=== PATIENT | female | born 1980 | race Caucasian/White ===

== ENCOUNTER → 2018-11-03 10:51 | Outpatient (CLI) | payer OTHER, SELFPAY ==
[2018-11-03 12:01] LABS: Add Manual Diff / Slide Review NO; Basophils Percent Auto 0.4 % (0-2); Eosinophils Percent Auto 0.6 % (2-4); Hematocrit 42.3 % (36-46); Hemoglobin 14.3 g/dL (12.0-16.0); Lymphocytes Percent Auto 28.4 % (25-40); Mean Corpuscular HGB Conc 33.8 % (30-36); Mean Corpuscular Hemoglobin 29.6 PG (26-34); Mean Corpuscular Volume 87.5 fL (80-100); Monocytes Percent Auto 8.5 % (3-14); Neutrophils Absolute Auto 4100 /uL (3000-5900); Neutrophils Percent Auto 62.1 % (50-75); Platelet Count 539 X10^3/uL (150-400); Red Blood Cell Count 4.84 X10^6/uL (4.0-5.2); Red Cell Distribution Width 13.6 % (11.6-14.8); White Blood Cell Count 6.6 X10^3/uL (4.5-11.0)
[2018-11-03 12:16] LABS: Alanine Aminotransferase 25 IU/L (9-52); Albumin 4.9 g/dL (3.5-5.0); Albumin Globulin Ratio 1.6 (1.0-2.8); Alkaline Phosphatase 40 U/L (38-126); Aspartate Aminotransferase 21 IU/L (14-36); Bilirubin Total 1.1 mg/dL (0.2-1.3); Blood Urea Nitrogen 15 mg/dL (7-17); Calcium 9.6 mg/dL (8.4-10.2); Carbon Dioxide 28 mmol/L (22-32); Chloride 103 mmol/L (98-107); Estimated Glomerular Filt Rate > 60.0 mL/min (>60); Globulin 3.1 g/dL (1.7-4.1); Glucose 92 mg/dL (70-100); HEMOLYSIS < 15 (0-50); Potassium 3.9 mmol/L (3.4-5.1); Sodium 145 mmol/L (137-145)
[2018-11-03 12:45] LABS: TSH w/ Reflex to FT4 1.11 uIU/mL (0.47-4.68)
== END ==
PROVIDERS: PCP Internal Medicine; Visit Provider Internal Medicine
DX: F33.1 Major depressive disorder, recurrent, moderate (principal); G80.9 Cerebral palsy, unspecified; R03.0 Elevated blood-pressure reading, without diagnosis of hypertension
CPT/HCPCS: 36415; 80053; 84443; 85025

== ENCOUNTER → 2019-06-08 09:07 | Outpatient (CLI) | payer OTHER, SELFPAY ==
[2019-06-08 10:48] LABS: BUN Creatinine Ratio 26.7 (6-22); Blood Urea Nitrogen 16 mg/dL (7-17); Calcium 9.5 mg/dL (8.4-10.2); Carbon Dioxide 27 mmol/L (22-32); Chloride 105 mmol/L (98-107); Estimated Glomerular Filt Rate > 60.0 mL/min (>60); Glucose 78 mg/dL (70-100); HEMOLYSIS < 15 (0-50); Potassium 4.4 mmol/L (3.4-5.1); Sodium 141 mmol/L (137-145)
== END ==
PROVIDERS: PCP Internal Medicine; Visit Provider Internal Medicine
DX: I10 Essential (primary) hypertension (principal)
CPT/HCPCS: 36415; 80048

== ENCOUNTER → 2019-12-11 17:21 | Outpatient (CLI) | payer OTHER, SELFPAY | PROVIDERS: PCP Internal Medicine; Visit Provider Physician Assistant | DX: N30.00 Acute cystitis without hematuria (principal) | CPT/HCPCS: 87077; 87086; 87186 ==

== ENCOUNTER 2021-02-08 11:18 | Emergency (ER) | payer OTHER, SELFPAY ==
[2021-02-08 11:25] VITALS: BP 156/88; PULSE 123; RESP 20; TEMP 36.8; O2SAT 100; BMI 20.7
[2021-02-08 11:28] VITALS: PULSE 112; RESP 19; O2SAT 100
[2021-02-08 11:30] VITALS: BP 148/84; PULSE 101; RESP 11; O2SAT 100
[2021-02-08 11:38] LABS: Add Manual Diff / Slide Review NO; Basophils Absolute Auto 0 /uL (0-100); Basophils Percent Auto 0.5 % (0-2); Eosinophils Absolute Auto 100 /uL (0-450); Hematocrit 41.5 % (36-46); Lymphocytes Absolute Auto 2200 /uL (1100-4500); Lymphocytes Percent Auto 36.9 % (25-40); Mean Corpuscular HGB Conc 33.7 % (30-36); Mean Corpuscular Hemoglobin 29.6 PG (26-34); Mean Corpuscular Volume 87.8 fL (80-100); Monocytes Absolute Auto 700 /uL (0-900); Monocytes Percent Auto 11.5 % (3-14); Neutrophils Absolute Auto 2900 /uL (1500-7000); Neutrophils Percent Auto 50.1 % (50-75); Platelet Count 530 X10^3/uL (150-400); Red Blood Cell Count 4.73 X10^6/uL (4.0-5.2); Red Cell Distribution Width 13.8 % (11.6-14.8); White Blood Cell Count 5.9 X10^3/uL (4.5-11.0)
[2021-02-08 11:50] LABS: Blood Urea Nitrogen 16 mg/dL (7-17); Calcium 9.7 mg/dL (8.4-10.2); Carbon Dioxide 25 mmol/L (22-32); Chloride 106 mmol/L (98-107); Estimated Glomerular Filt Rate > 60.0 mL/min (>60); Glucose 92 mg/dL (70-100); HEMOLYSIS < 15 (0-50); Potassium 3.6 mmol/L (3.4-5.1); Sodium 139 mmol/L (137-145)
[2021-02-08 11:51] LABS: Magnesium 1.9 mg/dL (1.6-2.3)
--- NOTE | 2021-02-08 11:56 | ED_ITS ---
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 She states that she currently feels very woozy. She was seen by her primary doctor's office approximately 2 weeks ago for palpitations. She was diagnosed with premature atrial contractions. She is scheduled for a echocardiogram at the beginning of next month. There was some discussion about putting her on a beta-jabari but the decision was made to wait until after the echocardiogram. She states that today she felt like her heart was beating fast. She took her blood pressure today and she states that the systolic blood pressure ranged anywhere from the 120s to 150s. She contacted her primary doctor's office nurse who told her to come to the emergency department for evaluation. Related Data Previous Rx's Medication Instructions Recorded blood pressure monitor #1 each 04/13/19 bupropion HCl 150 mg tablet,12 hr 150 mg PO BID #120 tab 09/21/20 sustained-release lisinopril 5 mg tablet 5 mg PO DAILY #90 tab 09/21/20 propranolol 10 mg PO DAILY PRN #14 tab 02/08/21 Allergies Allergy/AdvReac Type Severity Reaction Status Date / Time No Known Drug Allergies Allergy Verified 01/23/21 15:43 Review of Systems Constitutional Constitutional: Denies fever(s) and Denies headache(s) ENT Ears, Nose, Mouth, and Throat: Denies headache(s) Cardiovascular Cardiovascular: Reports chest pain, Reports rapid heart rate, Reports irregular heart rhythm, Reports lightheadedness and Denies dyspnea Respiratory Respiratory: Denies cough and Denies dyspnea Gastrointestinal Gastrointestinal: Denies abdominal pain, Denies nausea and Denies vomiting Genitourinary Genitourinary: Denies dysuria Genitourinary: Denies dysuria Musculoskeletal Musculoskeletal: Denies arthralgias and Denies myalgias Integumentary/Breasts Skin/Breast: Reports rash Neurologic Neurologic: Denies headache(s) Hematologic/Lymphatic On Anticoagulants: No Allergic/Immunologic Allergic/Immunologic: Denies urticaria Patient History Medical History (Updated 02/08/21 @ 12:45 by Heber Tafoya DO) Cerebral palsy (10/05/12) Cerebral palsy H/O migraine Moderate episode of recurrent major depressive disorder Seasonal affective disorder (12/22/17) Social History Smoking Status: Never smoker Smoking Status: Never smoker Exam Initial Vital Signs Initial Vital Signs: Vital Signs Temperature 98.3 F 02/08/21 11:25 Pulse Rate 123 H 02/08/21 11:25 Respiratory Rate 20 02/08/21 11:25 Blood Pressure 156/88 H 02/08/21 11:25 Pulse Oximetry 100 02/08/21 11:25 Const General: cooperative, comfortable and well developed Limitations: mental status not altered HENMT Head: normal to inspection and normocephalic Resp Effort & Inspection: normal respiratory effort Auscultation: clear to auscultation bilaterally Cardio Rate: regular rate Rhythm: regular rhythm GI Palpation: soft Skin Lesions: no lesions Rashes: no rashes Neuro General: patient alert, patient awake and patient oriented x3 Cognition: normal cognition Speech: speech normal Extrem General: capillary refill normal and No edema Psych Appearance: grossly normal and well kempt Course Orders Ordered: ED Orders 02/08/21 11:23 EKG-12 Lead Stat 02/08/21 11:29 Basic Metabolic Panel Stat Complete Blood Count AUTO DIFF Stat Magnesium Stat Test Serum,Qual Stat Thyroid Stimulating Hormone Stat Vital Signs Vital signs: Vital Signs - 8 hr 02/08/21 11:25 02/08/21 11:28 02/08/21 11:30 Temperature 98.3 F Pulse Rate 123 H 112 H 101 H Respiratory Rate 20 19 11 L Blood Pressure 156/88 H 148/84 H Pulse Oximetry 100 100 100 02/08/21 12:00 02/08/21 12:30 Temperature Pulse Rate 90 83 Respiratory Rate 24 19 Blood Pressure 138/80 128/69 Pulse Oximetry 98 98 Medical Decision Making Lab Data Lab results reviewed: Yes I reviewed the patient's lab results. Result diagrams: 02/08/21 11:29 02/08/21 11:29 Labs: Lab Results 02/08/21 02/08/21 02/08/21 Range/Units 11:29 11:29 11:29 WBC 5.9 (4.5-11.0) X10^3/uL RBC 4.73 (4.0-5.2) X10^6/uL Hgb 14.0 (12.0-16.0) g/dL Hct 41.5 (36-46) % MCV 87.8 (80-100) fL MCH 29.6 (26-34) PG MCHC 33.7 (30-36) % RDW 13.8 (11.6-14.8) % Plt Count 530 H (150-400) X10^3/uL Neut % (Auto) 50.1 (50-75) % Lymph % (Auto) 36.9 (25-40) % [place] % (Auto) 11.5 (3-14) % Eos % (Auto) 1.0 L (2-4) % Baso % (Auto) 0.5 (0-2) % Neut # (Auto) 2900 (2557-2558) /uL Lymph # (Auto) 2200 (8227-2400) /uL [place] # (Auto) 700 (0-900) /uL Eos # (Auto) 100 (0-450) /uL Baso # (Auto) 0 (0-100) /uL Sodium 139 (137-145) mmol/L Potassium 3.6 (3.4-5.1) mmol/L Chloride 106 (98-107) mmol/L Carbon Dioxide 25 (22-32) mmol/L BUN 16 (7-17) mg/dL Creatinine 0.64 (0.52-1.04) mg/dL Estimated GFR > 60.0 (>60) mL/min BUN/Creatinine Ratio 25.0 H (6-22) Glucose 92 (70-100) mg/dL Calcium 9.7 (8.4-10.2) mg/dL Magnesium (1.6-2.3) mg/dL TSH 1.50 (0.47-4.68) uIU/mL Serum , Qual (Negative) 02/08/21 02/08/21 Range/Units 11:29 11:29 WBC (4.5-11.0) X10^3/uL RBC (4.0-5.2) X10^6/uL Hgb (12.0-16.0) g/dL Hct (36-46) % MCV (80-100) fL MCH (26-34) PG MCHC (30-36) % RDW (11.6-14.8) % Plt Count (150-400) X10^3/uL Neut % (Auto) (50-75) % Lymph % (Auto) (25-40) % [place] % (Auto) (3-14) % Eos % (Auto) (2-4) % Baso % (Auto) (0-2) % Neut # (Auto) (2788-6491) /uL Lymph # (Auto) (5392-4329) /uL [place] # (Auto) (0-900) /uL Eos # (Auto) (0-450) /uL Baso # (Auto) (0-100) /uL Sodium (137-145) mmol/L Potassium (3.4-5.1) mmol/L Chloride (98-107) mmol/L Carbon Dioxide (22-32) mmol/L BUN (7-17) mg/dL Creatinine (0.52-1.04) mg/dL Estimated GFR (>60) mL/min BUN/Creatinine Ratio (6-22) Glucose (70-100) mg/dL Calcium (8.4-10.2) mg/dL Magnesium 1.9 (1.6-2.3) mg/dL TSH (0.47-4.68) uIU/mL Serum , Qual Negative (Negative) ECG Data Attestation: I personally reviewed and interpreted this ECG as follows: Prior ECG tracings: not available for review Interpretation: Sinus tachycardia Ventricular rate of 107 Normal axis Normal QRS Normal QTC No ST T wave changes MDM Narrative Medical decision making narrative: Patient is not toxic. Her labs are unremarkable. She was sinus tachycardic on her EKG and this did improve without intervention. Her blood pressure was unremarkable. She already has an appointment scheduled for an echocardiogram in the near future. She also is having quite a bit of anxiety around the symptoms. Will start her on propanolol as needed to help with the palpitations and also potentially can help with the anxiety. We did discuss this could potentially cause her blood pressure to decrease and to watch for signs regarding this. She was given return precautions and follow-up instructions. She expressed understanding and agreement Discharge Plan Departure Patient Disposition: Home Clinical Impression: Sinus tachycardia Instructions: Arrhythmias Activity Restrictions/Additional Instructions: Your labs today are unremarkable. Recommend that you keep your scheduled appoi ntment for the echocardiogram at the beginning of next month. Return to the emergency department for the symptoms that we discussed. Prescriptions: New propranolol 10 mg tablet 10 mg PO DAILY PRN (Reason: Palpitations) Qty: 14 RF: 0 No Action (DME) blood pressure monitor kit See Dose Instructions .ROUTE .MEDSUPPLY Qty: 1 RF: 0 lisinopril 5 mg tablet 5 mg PO DAILY Qty: 90 RF: 3 bupropion HCl [Wellbutrin SR] 150 mg tablet sustained-release 12 hr 150 mg PO BID Qty: 120 RF: 3 Referrals: Gibson Hatfield MD [Primary Care Provider] -
[2021-02-08 11:58] LABS: Pregnancy Test Serum,Qual Negative (Negative)
[2021-02-08 12:00] VITALS: BP 138/80; PULSE 90; RESP 24; O2SAT 98
[2021-02-08 12:30] VITALS: BP 128/69; PULSE 83; RESP 19; O2SAT 98
== END 2021-02-08 12:55 | disposition home or self-care (01) ==
PROVIDERS: Emergency Provider Emergency Medicine; PCP Internal Medicine
DX: R00.0 Tachycardia, unspecified (principal); R07.9 Chest pain, unspecified; R21 Rash and other nonspecific skin eruption
CPT/HCPCS: 36415; 80048; 83735; 84443; 84703; 85025; 93005; 93010; 99283; 99284

== ENCOUNTER → 2021-02-22 08:10 | Outpatient (CLI) | payer OTHER, SELFPAY ==
--- NOTE | 2021-02-22 08:12 | DI.ECHO.S_ITS ---
[facility] +---------+ [facility] +---------+ : : [address] : : : : [id number] : : : : Phone: [phone]---------+ Echocardiogram Report + + :Name: ROSALBA WHEELER Study Date: 02/22/2021 Height: 60 in : :[facility] ReadingLocation: Weight: 112 lb : : Gender: Female BSA: 1.5 m2 : :: 1980 Age: 40 yrs BP: 118/74 mmHg: :Reason For Study: NEW DX OF FREQUENT PACS : :Ordering Physician: JOHNNIE, : :ALEK Performed By: Nena Shepherd : :Referring: ALEK BLAIR : + + Interpretation Summary The left ventricle is normal in size and wall thickness. The ejection fraction is estimated to be 60-65%. The right ventricle is normal in size and function. No significant valvular pathology seen. The IVC is of normal diameter and collapses greater than 50% with a sniff. This suggests a low right atrial pressure of 3 mm Hg. Procedure: A two-dimensional transthoracic echocardiogram with color flow and Doppler was performed. The study quality was technically adequate. There is no prior echocardiogram noted for this patient. The patient was in sinus rhythm with heart rates between 77-99 bpm during the exam. Left Ventricle: The left ventricle is normal in size and wall thickness. There is no thrombus. A false chord is noted (normal variant). The ejection fraction is estimated to be 60-65%. There are no focal wall motion abnormalities. Diastolic parameters suggest probable normal left ventricular diastolic function and normal filling pressures. Right Ventricle: The right ventricle is normal in size and function. Atria: The left atrial size is normal. Right atrial size is normal. There is no Doppler evidence for an interatrial shunt. Mitral Valve: The mitral valve is normal in structure and function. There is mild mitral regurgitation. Aortic Valve: The aortic valve is trileaflet. The aortic valve opens well. There is no aortic valve stenosis. There is trace aortic regurgitation. Tricuspid Valve: The tricuspid valve is normal in structure and function. There is trace tricuspid regurgitation. Pulmonary artery pressures cannot be estimated because of the lack of a measurable TR jet velocity but the IVC suggests a CVP of around 3 mmHg. Pulmonic Valve: The pulmonic valve leaflets are thin and pliable; valve motion is normal. There is no pulmonic valvular regurgitation. Great Vessels: The aortic root is normal size. The dimensions of the ascending aorta are normal. The IVC is of normal diameter and collapses greater than 50% with a sniff. This suggests a low right atrial pressure of 3 mm Hg. Pericardium/ Pleura There is no pericardial effusion. There is no pleural effusion. MMode/2D Measurements & Calculations LVIDd: 4.1 cm LVOT diam: 2.0 cm LVIDs: 2.7 cm Ao root diam: 2.8 cm FS: 35.1 % asc Aorta Diam: 2.4 cm EPSS: 0.38 cm Ao Arch Diam (Prox Trans): 2.3 cm IVSd: 0.81 cm LVPWd: 0.63 cm LV lezama. diameter/BSA (cm/m^2): 2.8 LV sys. diameter/BSA (cm/m^2): 1.8 LA A2 area: 16.3 cm2 RA long axis: 4.0 cm LA A4 area: 15.0 cm2 RA area: 10.3 cm2 LA length (vol): 4.4 cm RA vol: 22.6 ml LA vol: 47.0 ml RA : 15.5 ml/m2 LA vol index: 32.2 ml/m2 IVC diam: 1.5 cm RVD1 (basal): 2.6 cm TAPSE: 2.1 cm Doppler Measurements & Calculations Ao V2 max: 160.3 cm/sec LVOT Max Chet: 97.1 cm/sec Ao V2 mean: 111.5 cm/sec LV V1 max P.8 mmHg Ao max P.3 mmHg LV V1 VTI: 20.5 cm Ao mean P.7 mmHg JESSICA(I,D): 2.1 cm2 Ao V2 VTI: 29.6 cm JESSICA(V,D): 1.9 cm2 sev ratio: 0.69 JESSICA indexed to BSA (cm^2/m^2): 1.5 MV E max chet: 108.4 cm/sec PA V2 max: 129.5 cm/sec MV A max chet: 84.7 cm/sec PA V2 mean: 90.8 cm/sec MV E/A: 1.3 PA mean P.8 mmHg Med Peak E' Chet: 10.6 cm/sec PA pr(Accel): 24.2 mmHg E/E' med: 10.2 Lat Peak E' Chet: 18.0 cm/sec E/E' lat: 6.0 E/e' average: 8.1 MV dec time: 0.17 sec SVLVOT): 63.1 ml Reading Physician:04:30 PM
== END ==
PROVIDERS: PCP Internal Medicine; Referring Provider Student in an Organized Health Care Education/Training Program; Visit Provider Student in an Organized Health Care Education/Training Program
DX: I49.1 Atrial premature depolarization (principal)
CPT/HCPCS: 93306

== ENCOUNTER → 2021-03-09 16:30 | Outpatient (CLI) | payer OTHER, SELFPAY ==
[2021-03-09] MEDS: COVID-19 VACC #1, MRNA(MOD) 100 MCG/0.5 ML VIAL IM (16:38)
== END ==
PROVIDERS: PCP Internal Medicine; Visit Provider Internal Medicine
DX: Z23 Encounter for immunization (principal)
CPT/HCPCS: 0011A; 91301

== ENCOUNTER → 2021-04-05 08:15 | Outpatient (CLI) | payer OTHER, SELFPAY ==
[2021-04-05 09:50] LABS: Alanine Aminotransferase 30 IU/L (<35); Albumin 4.1 g/dL (3.5-5.0); Albumin Globulin Ratio 1.5 (1.0-2.8); Alkaline Phosphatase 38 U/L (38-126); Aspartate Aminotransferase 33 IU/L (14-36); BUN Creatinine Ratio 14.9 (6-22); Bilirubin Total 1.3 mg/dL (0.2-1.3); Blood Urea Nitrogen 10 mg/dL (7-17); Carbon Dioxide 29 mmol/L (22-32); Chloride 103 mmol/L (98-107); Cholesterol 226 mg/dL (140-199); Estimated Glomerular Filt Rate > 60.0 mL/min (>60); Globulin 2.8 g/dL (1.7-4.1); Glucose 77 mg/dL (70-100); HDL Cholesterol 62 mg/dL (40-60); HEMOLYSIS < 15 (0-50); LDL Cholesterol Calculated 154 mg/dL (<100); Potassium 4.3 mmol/L (3.4-5.1); Sodium 139 mmol/L (137-145); Total Protein 6.9 g/dL (6.3-8.2); Triglycerides 50 mg/dL (35-150)
== END ==
PROVIDERS: PCP Internal Medicine; Referring Provider Internal Medicine; Visit Provider Internal Medicine
DX: F33.1 Major depressive disorder, recurrent, moderate (principal); F33.9 Major depressive disorder, recurrent, unspecified; I10 Essential (primary) hypertension
CPT/HCPCS: 36415; 80053; 80061

== ENCOUNTER → 2021-04-05 09:26 | Outpatient (CLI) | payer OTHER, SELFPAY ==
[2021-04-05] MEDS: COVID-19 VACC #2, MRNA(MOD) 100 MCG/0.5 ML VIAL IM (09:31)
== END ==
PROVIDERS: PCP Internal Medicine; Visit Provider Internal Medicine
DX: Z23 Encounter for immunization (principal)
CPT/HCPCS: 0012A; 91301

== ENCOUNTER → 2022-10-20 16:40 | Outpatient (CLI) | payer OTHER, SELFPAY ==
[2022-10-21 13:01] LABS: COVID-19 CEPHEID 4-PLEX PCR Negative (Negative); Influenza A - CEPHEID Flu A POSITIVE (NEGATIVE); Influenza B - CEPHEID Flu B NEGATIVE (NEGATIVE); Respiratory Syncytial Virus Negative (Negative)
== END ==
PROVIDERS: PCP Internal Medicine; Visit Provider Physician Assistant
DX: R05.9 Cough, unspecified (principal)
CPT/HCPCS: 0241U

== ENCOUNTER → 2023-01-07 07:09 | Outpatient (CLI) | payer OTHER, SELFPAY ==
[2023-01-07 09:23] LABS: BUN Creatinine Ratio 18.5 (6-22); Blood Urea Nitrogen 12 mg/dL (7-17); Calcium 8.9 mg/dL (8.4-10.2); Carbon Dioxide 30 mmol/L (22-32); Chloride 100 mmol/L (98-107); Estimated Glomerular Filt Rate > 60 mL/min (>60); Glucose 83 mg/dL (70-100); HEMOLYSIS < 15 (0-50); Potassium 3.9 mmol/L (3.4-5.1); Sodium 138 mmol/L (137-145)
== END ==
PROVIDERS: PCP Internal Medicine; Referring Provider Internal Medicine; Visit Provider Internal Medicine
DX: I10 Essential (primary) hypertension (principal)
CPT/HCPCS: 36415; 80048

== ENCOUNTER → 2023-01-22 12:31 | Outpatient (CLI) | payer OTHER, SELFPAY ==
--- NOTE | 2023-01-22 12:33 | DI.MG.S_ITS ---
BILATERAL DIGITAL SCREENING MAMMOGRAM 3D/2D WITH CAD: 01/22/2023 CLINICAL: Baseline exam. Routine screening. No prior exams were available for comparison. Both breasts are heterogeneously dense, which may obscure small masses (category c / 51-75% glandular tissue). Current study was also evaluated with a Computer Aided Detection (CAD) system. There is a 1.4 cm oval mass with a circumscribed margin in the right breast at 12 o'clock in the retroareolar region. No other significant masses, calcifications, or other findings are seen in either breast. IMPRESSION: INCOMPLETE: NEEDS ADDITIONAL IMAGING EVALUATION The 1.4 cm oval mass in the right breast resembles a fibroadenoma and is indeterminate. Additional views with possible ultrasound are recommended. Based on Tyrer-Cuzick model (a risk assessment model), the patient's lifetime risk is 30.1% and her 10 year risk is 6.8%. If a patient has an elevated risk, a more comprehensive evaluation should be considered and/or a referral to a genetic counselor. The [place] [employer], [employer], and NCCN Guidelines advise the consideration of Breast MRI as an adjunct to screening mammography in patients whose Lifetime risk to develop breast cancer is 20% or higher. This exam was interpreted at Station ID: [id number]. NOTE: For mammograms, a report in lay terms will be sent to the patient. Approximately 15% of breast malignancies will not be visualized mammographically. In the management of a palpable breast mass, a negative mammogram must not discourage biopsy of a clinically suspicious lesion. Electronically Signed By: Cristian Joe M.D. [facility] [place]/:01/22/2023 14:27:49 letter sent: Additional Imaging Needed ACR BI-RADS Category 0: Incomplete [id number]
== END ==
PROVIDERS: PCP Internal Medicine; Referring Provider Internal Medicine; Visit Provider Internal Medicine
DX: Z12.31 Encounter for screening mammogram for malignant neoplasm of breast (principal)
CPT/HCPCS: 77063; 77067

== ENCOUNTER → 2023-02-05 12:58 | Outpatient (CLI) | payer OTHER, SELFPAY ==
--- NOTE | 2023-02-05 | DI.MG.S_ITS ---
UNILATERAL RIGHT DIGITAL DIAGNOSTIC MAMMOGRAM 3D/2D WITH ADDITIONAL VIEWS: 02/05/2023 CLINICAL: Additional evaluation requested from prior study. Comparison is made to exam dated: 01/22/2023 mammogram - [facility]. The right breast is heterogeneously dense, which may obscure small masses (category c / 51-75% glandular tissue). There is a mass in the right breast seen on the craniocaudal view only. There also is a 1.9 cm irregular mass with a circumscribed margin in the right breast at 12 o'clock in the retroareolar region 1.5 cm from the nipple. No other significant masses or calcifications are seen in the breast. IMPRESSION: INCOMPLETE: NEEDS ADDITIONAL IMAGING EVALUATION The mass in the right breast seen on the craniocaudal view only needs additional evaluation. The 1.9 cm irregular mass in the right breast at 12 o'clock in the retroareolar region resembles a fibroadenoma or cyst and is indeterminate. An ultrasound is recommended. Based on Tyrer-Cuzick model (a risk assessment model), the patient's lifetime risk is 31.5% and her 10 year risk is 7.1%. If a patient has an elevated risk, a more comprehensive evaluation should be considered and/or a referral to a genetic counselor. The [place] [employer], [employer], and NCCN Guidelines advise the consideration of Breast MRI as an adjunct to screening mammography in patients whose Lifetime risk to develop breast cancer is 20% or higher. This exam was interpreted at Station ID: [id number]. NOTE: For mammograms, a report in lay terms will be sent to the patient. Approximately 15% of breast malignancies will not be visualized mammographically. In the management of a palpable breast mass, a negative mammogram must not discourage biopsy of a clinically suspicious lesion. Electronically Signed By: Cali Rosenberg M.D. acr/:02/05/2023 14:33:16 ACR BI-RADS Category 0: Incomplete [id number]
--- NOTE | 2023-02-05 12:59 | DI.US.S_ITS ---
PROCEDURE: US BREAST RT LIMITED COMPARISON: None. INDICATIONS: screen FINDINGS: IMPRESSION: Dictated by: Cali Rosenberg M.D. on 02/05/2023 at 14:45 Approved by: Cali Rosenberg M.D. on 02/05/2023 at 14:56
--- NOTE | 2023-02-05 13:43 | DI.US.S_ITS ---
At the request of: ROBERTH ROGERS Procedure: US breast RT limited ULTRASOUND OF RIGHT BREAST: 02/05/2023 CLINICAL: Patient returns today to evaluate an asymmetry in the right breast. Comparison is made to exams dated: 02/05/2023 mammogram and 01/22/2023 mammogram - [facility]. Color flow and real-time ultrasound of the right breast were performed. Kennedy scale images of the realtime examination were reviewed. There is a benign 1.4 cm x 0.9 cm x 1.4 cm simple cyst in the right breast at 12 o'clock in the retroareolar region. IMPRESSION: BENIGN There is no sonographic evidence of malignancy. The 1.4 cm x 0.9 cm x 1.4 cm simple cyst in the right breast is consistent with a simple cyst and is benign. A 1 year screening mammogram is recommended. This exam was interpreted at Station ID: [id number]. Electronically Signed By: Cali Rosenberg M.D. acr/sierra:02/05/2023 14:55:32 Ultrasound BI-RADS: 2 Benign
== END ==
PROVIDERS: PCP Internal Medicine; Referring Provider Internal Medicine; Visit Provider Internal Medicine
DX: R92.8 Other abnormal and inconclusive findings on diagnostic imaging of breast (principal); N60.01 Solitary cyst of right breast
CPT/HCPCS: 76642; 77065; G0279

== ENCOUNTER → 2024-02-22 10:30 | Outpatient (CLI) | payer OTHER, SELFPAY | PROVIDERS: PCP Internal Medicine; Visit Provider Nurse Practitioner Family | DX: R30.0 Dysuria (principal); N94.9 Unspecified condition associated with female genital organs and menstrual cycle | CPT/HCPCS: 87077; 87086; 87186; 87210 ==

== ENCOUNTER → 2024-02-27 14:18 | Outpatient (CLI) | payer OTHER, SELFPAY | PROVIDERS: PCP Internal Medicine; Referring Provider Internal Medicine; Visit Provider Internal Medicine | DX: R53.83 Other fatigue (principal) | CPT/HCPCS: 87086 ==

== ENCOUNTER → 2024-02-28 08:26 | Outpatient (CLI) | payer OTHER, SELFPAY ==
[2024-02-28 09:01] LABS: Add Manual Diff / Slide Review NO; Basophils Absolute Auto 0 /uL (0-100); Basophils Percent Auto 0.7 % (0-2); Eosinophils Absolute Auto 100 /uL (0-450); Eosinophils Percent Auto 1.9 % (2-4); Hematocrit 40.1 % (36-46); Hemoglobin 13.6 g/dL (12.0-16.0); Lymphocytes Absolute Auto 2100 /uL (1100-4500); Lymphocytes Percent Auto 34.6 % (25-40); Mean Corpuscular HGB Conc 33.9 % (30-36); Mean Corpuscular Hemoglobin 29.5 PG (26-34); Mean Corpuscular Volume 87.1 fL (80-100); Monocytes Absolute Auto 500 /uL (0-900); Monocytes Percent Auto 8.8 % (3-14); Neutrophils Absolute Auto 3300 /uL (1500-7000); Platelet Count 425 X10^3/uL (150-400); Red Cell Distribution Width 14.1 % (11.6-14.8); White Blood Cell Count 6.2 X10^3/uL (4.5-11.0)
[2024-02-28 09:28] LABS: HEMOLYSIS < 15 (0-50); Iron 77 ug/dL (37-170)
[2024-02-28 09:32] LABS: C-Reactive Protein Quant < 0.5 mg/dL (<1.0)
[2024-02-28 09:40] LABS: Percent Iron Saturation 23 % (15-50); Total Iron Binding Capacity 332 ug/dL (265-497); Transferrin 275 mg/dL (206-381)
[2024-02-28 09:46] LABS: Vitamin D 25 Hydroxy (D3) 33.1 ng/mL (30.0-100.0)
[2024-02-28 10:01] LABS: Thyroid Stimulating Hormone 1.21 uIU/mL (0.47-4.68)
[2024-02-28 10:02] LABS: Cortisol AM (Before 10AM) 13.6 ug/dL (4.46-22.7)
[2024-02-28 10:06] LABS: Ferritin 20 ng/mL (6-137)
[2024-02-28 10:21] LABS: Vitamin B12 567 pg/mL (239-931)
== END ==
PROVIDERS: PCP Internal Medicine; Referring Provider Family Medicine; Visit Provider Family Medicine
DX: R53.83 Other fatigue (principal)
CPT/HCPCS: 36415; 82306; 82533; 82607; 82728; 83540; 83550; 84443; 85025; 86140

== ENCOUNTER → 2024-12-17 14:36 | Outpatient (CLI) | payer OTHER, SELFPAY ==
[2024-12-17 15:20] LABS: Add Manual Diff / Slide Review NO; Basophils Absolute Auto 0 /uL (0-100); Basophils Percent Auto 0.4 % (0-2); Eosinophils Absolute Auto 100 /uL (0-450); Eosinophils Percent Auto 1.1 % (2-4); Hematocrit 41.7 % (36-46); Hemoglobin 14.1 g/dL (12.0-16.0); Lymphocytes Absolute Auto 2400 /uL (1100-4500); Lymphocytes Percent Auto 30.1 % (25-40); Mean Corpuscular HGB Conc 33.8 % (30-36); Mean Corpuscular Hemoglobin 29.4 PG (26-34); Mean Corpuscular Volume 86.9 fL (80-100); Monocytes Absolute Auto 900 /uL (0-900); Neutrophils Absolute Auto 4500 /uL (1500-7000); Neutrophils Percent Auto 57.4 % (50-75); Platelet Count 541 X10^3/uL (150-400); White Blood Cell Count 7.9 X10^3/uL (4.5-11.0)
[2024-12-17 16:00] LABS: Erythrocyte Sedimentation Rate 5 MM/HR (0-20)
[2024-12-17 16:02] LABS: Alanine Aminotransferase 19 IU/L (<35); Albumin 4.9 g/dL (3.5-5.0); Albumin Globulin Ratio 1.5 (1.0-2.8); Alkaline Phosphatase 39 U/L (38-126); Aspartate Aminotransferase 27 IU/L (14-36); BUN Creatinine Ratio 23.9 (6-22); Bilirubin Total 0.6 mg/dL (0.2-1.3); Blood Urea Nitrogen 16 mg/dL (7-17); C-Reactive Protein Quant < 0.5 mg/dL (<1.0); Calcium 9.4 mg/dL (8.4-10.2); Carbon Dioxide 21 mmol/L (22-32); Chloride 107 mmol/L (98-107); Estimated Glomerular Filt Rate > 60 mL/min (>60); Globulin 3.3 g/dL (1.7-4.1); Glucose 85 mg/dL (70-100); HEMOLYSIS < 15 (0-50); Potassium 4.3 mmol/L (3.4-5.1); Sodium 138 mmol/L (137-145); Total Protein 8.2 g/dL (6.3-8.2)
[2024-12-17 16:04] LABS: Rheumatoid Factor < 8.6 IU/mL (<12.0)
[2024-12-17 16:32] LABS: TSH w/ Reflex to FT4 1.14 uIU/mL (0.47-4.68)
[2024-12-21 13:08] LABS: ANA Screen, IFA Negative (.)
== END ==
PROVIDERS: PCP Internal Medicine; Referring Provider Internal Medicine; Visit Provider Internal Medicine
DX: I10 Essential (primary) hypertension (principal); M25.50 Pain in unspecified joint
CPT/HCPCS: 80053; 84443; 85025; 85651; 86038; 86140; 86430